=== PATIENT | female | born 1990 | race Hispanic/Latino ===

== ENCOUNTER 2022-04-03 02:31 | Emergency (ER) | payer SELFPAY ==
[2022-04-03] MEDS ORDERED: MORPHINE 4 MG/1 ML INJ IM ONE (02:57)
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
[2022-04-03] MEDS ORDERED: TETANUS,DIPHTHERIA TOXOID ADULT 0.5 ML INJ IM ONE (03:00)
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
[2022-04-03 05:49] VITALS: BP 124/74
== END 2022-04-03 05:48 | disposition home or self-care (01) ==
LOC: ED 02:31
DX: S81.831A Puncture wound without foreign body, right lower leg, initial encounter (principal); F17.200 Nicotine dependence, unspecified, uncomplicated; Z88.6 Allergy status to analgesic agent; Z88.8 Allergy status to other drugs, medicaments and biological substances; Z79.899 Other long term (current) drug therapy; W34.09XA Accidental discharge from other specified firearms, initial encounter; Y93.89 Activity, other specified; Y92.89 Other specified places as the place of occurrence of the external cause; Y99.8 Other external cause status
CPT/HCPCS: 73590; 90471; 90714; 96372; 99283; J2270